=== PATIENT | male | born 1980 | race African-American/Black ===

== ENCOUNTER 2022-09-19 06:57 | Emergency (ER) | payer OTHER ==
[2022-09-19 07:10] VITALS: RESP 18; BMI 31.3
[2022-09-19] MEDS ORDERED: ACETAMINOPHEN 500 MG TABLET (FP) PO ONE (07:28)
[2022-09-19] MEDS ORDERED: SODIUM CHLORIDE 0.9% 500 ML INFUS.BAG IV ONE (07:28)
[2022-09-19] MEDS ORDERED: ONDANSETRON *ODT* 4 MG TABLET SL ONE (07:28)
[2022-09-19] MEDS ORDERED: amLODIPine BESYLATE 10 MG TABLET (FP) PO ONE (07:29)
[2022-09-19] MEDS ORDERED: ACETAMINOPHEN 325 MG TABLET (FP) ONE (07:41)
[2022-09-19] MEDS ORDERED: amLODIPine BESYLATE 10 MG TABLET (FP) ONE (07:41)
[2022-09-19] MEDS ORDERED: ONDANSETRON *ODT* 4 MG TABLET ONE (07:41)
[2022-09-19 08:37] LABS: BASO % 0.6 % (0-2.0); EOS % 0.5 % (0-4.5); HEMATOCRIT 47.2 % (35.4-49); HEMOGLOBIN 15.8 GM/dL (11.7-16.9); LYMPH % 5.9 % (8-40); MCH 29.9 pg (25.7-33.7); MCHC 33.5 g/dl (32.0-35.9); MEAN CELL VOLUME 89.3 fl (80-96); MONO % 10.1 % (3.8-10.2); NEUT % 82.9 % (42.8-82.8); PLATELET COUNT 225 10^3/uL (134-434); RBC 5.28 M/mm3 (4.00-5.60); RDW 14.2 % (11.9-15.9); WHITE BLOOD COUNT 12.8 K/mm3 (4.0-10.0)
[2022-09-19 08:58] LABS: BLOOD UREA NITROGEN 12.5 mg/dL (7-18)
[2022-09-19 08:59] LABS: ALBUMIN 4.1 g/dl (3.4-5.0)
[2022-09-19 09:02] LABS: CREATININE 1.3 mg/dL (0.55-1.3)
[2022-09-19 09:03] LABS: TOT PROT 7.4 g/dl (6.4-8.2)
[2022-09-19 09:04] LABS: BILIRUBIN,TOTAL 0.8 mg/dL (0.2-1)
[2022-09-19 09:46] VITALS: BP 159/107; PULSE 74; TEMP 98.4
== END 2022-09-19 10:11 | disposition home or self-care (01) ==
LOC: EDBD 06:57 → JER 06:57
DX: R05.1 Acute cough (principal); R50.9 Fever, unspecified; R09.81 Nasal congestion
CPT/HCPCS: 0241U-QW; 36415; 71046-TC-FY; 80053; 85025; 99284-25; Q0162